=== PATIENT | female | born 1995 | race Caucasian/White ===

== ENCOUNTER 2016-08-04 14:56 | Outpatient (CLI) | payer OTHER ==
[~2016-08-04] VITALS: Ht 160 cm; Wt 63.5 kg
[~2016-08-04 14:56] MED LIST: PRENATAL TABLE1 EAC3 PO
[2016-08-04 15:35] VITALS: BP 113/72
[2016-08-04 17:22] LABS: ADD MIUA? YES; BILIRUBIN NEGATIVE; BLOOD NEGATIVE; COLOR YELLOW ((YELLOW)); GLUCOSE (STRIP) NEGATIVE; KETONES NEGATIVE; LEUKOCYTES TRACE; NITRITE NEGATIVE; PH, URINE 7.5 (5-8); PROTEIN (STRIP) NEGATIVE; SPECIFIC GRAVITY 1.003 (1.000-1.030)
[2016-08-04 17:43] LABS: BACTERIA NONE SEEN; CASTS NONE SEEN /LPF; CRYSTALS NONE SEEN; EPITHELIAL CELLS RARE; MUCUS NONE SEEN; PATHOLOGICAL CAST NONE SEEN; RED BLOOD CELLS 0-5 /HPF (0-5); SMALL ROUND CELL NONE SEEN; UCUL ADDED? NO; WHITE BLOOD CELLS 0-5 /HPF (0-5); YEAST-LIKE CELL NONE SEEN
[2016-08-04 18:56] VITALS: BP 114/71
== END 2016-08-04 19:55 | disposition home or self-care (01) ==
LOC: LDRP-OP 14:56 → 2WEST 14:57 → LDRP-OP 09-27 08:31
PROVIDERS: Midwife
DX: O21.8 Other vomiting complicating pregnancy (principal); R51 Headache; Z3A.35 35 weeks gestation of pregnancy
CPT/HCPCS: 59025; 81003; G0378; J2405; J7030

== ENCOUNTER 2016-08-28 13:47 | Inpatient (IN) | payer OTHER ==
[~2016-08-28] VITALS: Ht 160 cm; Wt 68.9 kg
[2016-08-28] VITALS (11 sets, daily range): BP systolic 115–138; BP diastolic 60–87
[2016-08-28] MEDS ORDERED: IBUPROFEN800 MG PO (20:09)
[2016-08-29 02:55] VITALS: BP 122/59
[2016-08-29 07:49] VITALS: BP 129/81
[2016-08-29 08:17] LABS: EOSINOPHIL (%) 0.2 % (0-5); HEMATOCRIT 33.2 % (36.0-46.0); IMMATURE GRANULOCYTE (%) 0.2 % (0.0-0.7); LYMPHOCYTE COUNT 2.1 K/uL (1.0-2.8); MCH 30.4 PG (29.0-34.0); MCHC 33.4 G/DL (30.0-36.0); MEAN PLAT.VOLUME 12.1 uM^3 (9.5-12.4); MONOCYTE (%) 6.5 % (3-12); MONOCYTE COUNT 0.9 K/uL (0-0.8); NEUTROPHIL (%) 77.4 % (45-76); NEUTROPHIL COUNT 10.3 K/uL (1.8-6.4); PLATELET COUNT 186 K/uL (156-360); RBC DIS.WIDTH-CV 13.3 % (11.8-14.6); RBC DIS.WIDTH-SD 43.9 % (39-53); RED BLOOD COUNT 3.65 M/uL (3.80-5.20); WHITE BLOOD COUNT 13.3 K/uL (4.1-10.2)
[2016-08-29 14:39] VITALS: BP 129/74
[2016-08-29 22:54] VITALS: BP 128/57
[2016-08-30 08:25] VITALS: BP 120/65
== END 2016-08-30 13:53 | disposition home or self-care (01) | DRG 775 ==
LOC: LDRP-OP 13:47 → 2WEST 13:50 → LDRP-OP 09-27 20:01
PROVIDERS: Nurse Practitioner
DX: O70.0 First degree perineal laceration during delivery (principal); O69.82X0 Labor and delivery complicated by other cord entanglement, without compression, not applicable or unspecified; Z3A.38 38 weeks gestation of pregnancy; Z37.0 Single live birth
CPT/HCPCS: 85025; J2590

== ENCOUNTER 2017-06-24 21:32 | Emergency (ER) | payer OTHER ==
[~2017-06-24] VITALS: Ht 160 cm; Wt 55.2 kg
[~2017-06-24 21:32] MED LIST changes: +IBUPROFEN800 MG PO
[2017-06-24 22:02] LABS: ADD MIUA? YES; BILIRUBIN NEGATIVE; BLOOD NEGATIVE; COLOR YELLOW ((YELLOW)); GLUCOSE (STRIP) NEGATIVE; KETONES NEGATIVE; LEUKOCYTES NEGATIVE; NITRITE NEGATIVE; PROTEIN (STRIP) NEGATIVE; SPECIFIC GRAVITY 1.025 (1.000-1.030); UROBILINOGEN 0.2 MG/DL (0.2-1.0)
[2017-06-24 22:05] LABS: CHLORIDE 105 mEq/L (99-109)
[2017-06-24 22:06] LABS: POTASSIUM 3.9 mEq/L (3.7-5.4); SODIUM 139 mEq/L (136-147)
[2017-06-24 22:08] LABS: GLUCOSE 101 mg/dL (70-99)
[2017-06-24 22:08] LABS: BACTERIA NONE SEEN /HPF; EPITHELIAL CELLS RARE /HPF; MUCUS TRACE /LPF; RED BLOOD CELLS 0-5 /HPF (0-5); UCUL ADDED? NO; WHITE BLOOD CELLS 0-5 /HPF (0-5)
[2017-06-24 22:09] LABS: ANION GAP 9 MEQ/L (2-14)
[2017-06-24 22:10] LABS: TOTAL BILIRUBIN 0.4 mg/dL (0.0-1.0)
[2017-06-24 22:11] LABS: ALKALINE PHOSPHATASE 78 IU/L (3-129); GFR ESTIMATE (CALCULATED) > 59 mL/min/
[2017-06-24 22:13] LABS: UREA NITROGEN (BUN) 20 mg/dL (9-23)
[2017-06-24 22:14] LABS: HEMATOCRIT 38.4 % (36.0-46.0); MCH 31.4 PG (29.0-34.0); MCHC 34.9 G/DL (30.0-36.0); MCV 89.9 FL (83-99); MEAN PLAT.VOLUME 10.7 uM^3 (9.5-12.4); PLATELET COUNT 194 K/uL (156-360); RBC DIS.WIDTH-CV 12.1 % (11.8-14.6); RBC DIS.WIDTH-SD 39.5 % (39-53); RED BLOOD COUNT 4.27 M/uL (3.80-5.20); WHITE BLOOD COUNT 6.1 K/uL (4.1-10.2)
[2017-06-24 22:21] LABS: QUANTITATIVE HCG < 4.0 MIU/ML
[2017-06-24 22:35] LABS: LIPASE 21 U/L (1.0-51.0)
[2017-06-25] MEDS ORDERED: ZOFRAN4 MG PO (00:25)
[2017-06-25 01:00] VITALS: BP 124/75
== END 2017-06-25 01:01 | disposition home or self-care (01) ==
LOC: EME 21:32
DX: K52.9 Noninfective gastroenteritis and colitis, unspecified (principal)
CPT/HCPCS: 74177; 76856; 80053; 81003; 83690; 84702; 85027; 99281; 99285; J2405; J7030